=== PATIENT | female | born 1950 | race Caucasian/White ===

== ENCOUNTER → 2017-10-13 | Outpatient (CLI) | payer OTHER | END | disposition home or self-care (01) | LOC: LAB EV 17:32 | DX: N39.0 Urinary tract infection, site not specified (principal) | CPT/HCPCS: 87077; 87086; 87186 ==

== ENCOUNTER 2018-10-07 07:31 | Day surgery (SDC) | payer OTHER ==
[~2018-10-07] VITALS: Ht 162.6 cm; Wt 75.9 kg
[~2018-10-07 07:31] MED LIST: ALBU90OI; Advair Hfa 230-12 GM; CLOB.05TO; MONT10T; QVAR REDIHALE10.6 G1
== END 2018-10-07 09:50 | disposition home or self-care (01) ==
LOC: ORSCSDS 07:31
PROVIDERS: Internal Medicine Gastroenterology
PROC: 0DBN8ZX Excision of Sigmoid Colon, Via Natural or Artificial Opening Endoscopic, Diagnostic (ICD-10-PCS; principal; 2018-10-07 09:00)
PROC: 0DBL8ZX Excision of Transverse Colon, Via Natural or Artificial Opening Endoscopic, Diagnostic (ICD-10-PCS; principal; 2018-10-07 09:00)
DX: Z12.11 Encounter for screening for malignant neoplasm of colon (principal); Z86.010 Personal history of colon polyps; Z80.0 Family history of malignant neoplasm of digestive organs; D12.3 Benign neoplasm of transverse colon; K63.5 Polyp of colon; K57.30 Diverticulosis of large intestine without perforation or abscess without bleeding; J45.909 Unspecified asthma, uncomplicated; Z87.891 Personal history of nicotine dependence; Z79.899 Other long term (current) drug therapy
CPT/HCPCS: 88305; J0330; J1980; J2405; J7120

== ENCOUNTER → 2019-07-07 | Outpatient (CLI) | payer OTHER | END | disposition home or self-care (01) | LOC: LAB 16:21 → LAB SHORT 16:21 | DX: R10.2 Pelvic and perineal pain (principal) | CPT/HCPCS: 87086; 87147 ==

== ENCOUNTER 2020-09-07 07:49 | Day surgery (SDC) | payer OTHER ==
[~2020-09-07] VITALS: Ht 160 cm; Wt 82.4 kg
[~2020-09-07 07:49] MED LIST changes: +AMLO5 PO; +PRAVASTATIN SOD10 MG PO; +PROAIR RESPICL90 MCG; +ROSU5 PO
[2020-09-07] MEDS ORDERED: FLUT1DIS2 INH (08:47)
--- NOTE | 2020-09-07 10:27 | NUR ---
09/07/20 1027 Lona Guzman 1CC EPI/EACH USED IN FIRST 3 BAGS OF LR IRRIGATION
--- NOTE | 2020-09-07 11:30 | NUR ---
09/07/20 1130 Radha Sullivan INCENTIVE SPIROMETRY TEACHING AND DEMO BY PATIENT IS DONE.
--- NOTE | 2020-09-07 13:31 | NUR ---
09/07/20 [email or web address] MALIA NOBLES 0935-DR. WANG IN TO OBTAIN ANESTHESIA CONSENT, CONSENT OBTAINED, PATIENT PREPPED FOR INTERSCALE BLOCK, VS STABLE, DR. WANG ADMINISTERED SEDATION MEDICATION VIS IV, INTERSCALE BLOCK COMPLETE WITH NO COMPLICATIONS, PATIENT TOLERATED WELL, VS REMAIN STABLE
== END 2020-09-07 12:09 | disposition home or self-care (01) ==
LOC: ORSCSDS 07:49
PROVIDERS: Orthopaedic Surgery
PROC: 0LQ14ZZ Repair Right Shoulder Tendon, Percutaneous Endoscopic Approach (ICD-10-PCS; principal; 2020-09-07 09:30)
PROC: 0RNJ4ZZ Release Right Shoulder Joint, Percutaneous Endoscopic Approach (ICD-10-PCS; principal; 2020-09-07 09:30)
DX: M75.121 Complete rotator cuff tear or rupture of right shoulder, not specified as traumatic (principal); M75.21 Bicipital tendinitis, right shoulder; M75.41 Impingement syndrome of right shoulder; I10 Essential (primary) hypertension; J44.9 Chronic obstructive pulmonary disease, unspecified; Z87.891 Personal history of nicotine dependence; E78.5 Hyperlipidemia, unspecified; Z79.899 Other long term (current) drug therapy
CPT/HCPCS: C1713; J0171; J0690; J1100; J1885; J2001; J2250; J2370; J2405; J2704; J2710; J3010; J7120

== ENCOUNTER → 2020-09-27 | Outpatient (CLI) | payer OTHER ==
[~2020-09-27] MED LIST changes: +FLUT1DIS2 INH
== END | disposition home or self-care (01) ==
LOC: LAB SHORT 15:25
DX: R35.0 Frequency of micturition (principal)
CPT/HCPCS: 87086

== ENCOUNTER → 2021-03-10 | Outpatient (CLI) | payer OTHER | LOC: LAB SHORT 10:40 → LAB 10:40 | DX: Z20.822 Contact with and (suspected) exposure to COVID-19 (principal) | CPT/HCPCS: U0003 ==

== ENCOUNTER → 2021-08-20 | Outpatient (CLI) | payer OTHER | END | disposition home or self-care (01) | LOC: LAB SHORT 14:51 → LAB 14:51 | DX: L30.8 Other specified dermatitis (principal) | CPT/HCPCS: 88305; 88312 ==

== ENCOUNTER → 2022-01-28 | Outpatient (CLI) | payer OTHER | LOC: LAB 16:10 → LAB SHORT 16:10 | DX: N39.9 Disorder of urinary system, unspecified (principal) | CPT/HCPCS: 87077; 87086; 87186 ==

== ENCOUNTER → 2022-02-26 | Outpatient (CLI) | payer OTHER | LOC: LAB SHORT 16:40 | DX: N39.0 Urinary tract infection, site not specified (principal) | CPT/HCPCS: 87086; 87147 ==

== ENCOUNTER → 2022-03-05 | Outpatient (CLI) | payer OTHER | LOC: LAB 16:50 → LAB SHORT 16:50 | DX: N39.0 Urinary tract infection, site not specified (principal) | CPT/HCPCS: 87086 ==

== ENCOUNTER → 2025-06-23 | Outpatient (CLI) | payer OTHER ==
[~2025-06-23] MED LIST changes: +LOSA50 PO; +ROSUVASTATIN CAL5 MG PO
== END ==
LOC: LAB 16:52 → LAB SHORT 16:52
DX: R32 Unspecified urinary incontinence (principal); R73.9 Hyperglycemia, unspecified
CPT/HCPCS: 87086